=== PATIENT | male | born 1975 | race Native Hawaiian/Other Pacific Islander ===

== ENCOUNTER 2020-02-22 12:41 | Outpatient (CLI) | payer OTHER ==
[2020-02-22 13:16] LABS: PLATELET COUNT 329 K/uL (142-355)
[2020-02-22 13:54] LABS: POTASSIUM 4.6 mmol/L (3.6-5.2)
== END 2020-02-22 19:32 | disposition home or self-care (01) ==
LOC: LAB 12:41
PROVIDERS: Physician Assistant
DX: E78.5 Hyperlipidemia, unspecified (principal); I10 Essential (primary) hypertension; E11.40 Type 2 diabetes mellitus with diabetic neuropathy, unspecified
CPT/HCPCS: 36415; 80053; 80061; 82607; 82746; 83036; 84443; 85027

== ENCOUNTER 2020-05-30 16:56 | Outpatient (CLI) | payer OTHER | END 2020-05-30 22:27 | disposition home or self-care (01) | LOC: LAB 16:56 | PROVIDERS: ATTEND Physician Assistant | DX: E11.8 Type 2 diabetes mellitus with unspecified complications (principal) | CPT/HCPCS: 83036 ==

== ENCOUNTER 2020-09-15 17:40 | Outpatient (CLI) | payer OTHER | END 2020-09-15 23:19 | disposition home or self-care (01) | LOC: LAB 17:40 | PROVIDERS: ATTEND Physician Assistant | DX: I10 Essential (primary) hypertension (principal); E11.8 Type 2 diabetes mellitus with unspecified complications; E11.40 Type 2 diabetes mellitus with diabetic neuropathy, unspecified; E78.5 Hyperlipidemia, unspecified; G58.9 Mononeuropathy, unspecified | CPT/HCPCS: 82306; 83036 ==